=== PATIENT | female | born 1940 | race Caucasian/White ===

== ENCOUNTER 2019-02-09 07:05 | Inpatient (IN) | payer MEDICARE, OTHER ==
[~2019-02-09] VITALS: Ht 157.5 cm; Wt 57.3 kg
[2019-02-09] VITALS (18 sets, daily range): BP systolic 99–153; BP diastolic 51–96
[~2019-02-09 07:05] MED LIST: FURO-150 PO; HYDR-3972 PO; POTA10TA19 PO
[2019-02-09] MEDS ORDERED: normal saline 1000ML IV soln IVB ONE (07:10)
[2019-02-09] MEDS ORDERED: morphine 4 MG/ML inj SYRINge IV PRN (07:10)
[2019-02-09] MEDS ORDERED: ondansetron/PF 4mg/2ml inj IV ONE (07:10)
--- NOTE | 2019-02-09 07:33 | NUR ---
PT MEDICATED FOR PAIN AND NAUSEA PER ORDERS, PT TO CT VIA GURNEY WITH HEALTH SERVICE WORKER NOW PER ORDERS,.
[2019-02-09 07:41] LABS: BASOPHILS % (AUTO) 0.3 % (0-1); EOSINOPHILS % (AUTO) 0.2 % (0-6); HEMATOCRIT 35.7 % (35.0-45.0); HEMOGLOBIN 11.8 g/dl (12.0-16.0); LYMPHOCYTES # (AUTO) 0.2 X10'3 (1.1-4.8); LYMPHOCYTES % (AUTO) 3.9 % (21-51); MEAN CORPUSCULAR HEMOGLOBIN 32.3 PG (27.0-31.0); MEAN CORPUSCULAR HGB CONC 33.2 g/dL (33.0-36.5); MEAN CORPUSCULAR VOLUME 97.4 FL (78-98); MEAN PLATELET VOLUME 6.8 FL (7.4-10.4); MONOCYTES # (AUTO) 0.3 X10'3 (0-0.9); NEUTROPHILS # (AUTO) 5.3 X10'3 (1.8-7.7); NEUTROPHILS % (AUTO) 90.6 % (42-75); PLATELET COUNT 170 X10'3 (140-440); RED BLOOD COUNT 3.66 X10'6 (4.20-5.60); WHITE BLOOD COUNT 5.9 X10'3 (4.5-11.0)
[2019-02-09 09:01] LABS: ALANINE AMINOTRANSFERASE 572 U/L (12-78); ALBUMIN 3.8 G/DL (3.4-5.0); ALBUMIN/GLOBULIN RATIO 1.3 (1.1-1.5); ALKALINE PHOSPHATASE 129 IU/L (46-116); ANION GAP 13 (8-16); ASPARTATE AMINO TRANSFERASE 995 U/L (10-37); BILIRUBIN,TOTAL 2.7 MG/DL (0.1-1.0); BLOOD UREA NITROGEN 22 MG/DL (7-18); BUN/CREATININE RATIO 20.4 (6.6-38.0); CHLORIDE 108 MMOL/L (99-107); CREATININE 1.08 MG/DL (0.40-0.90); GLUCOSE 147 MG/DL (70-104); LIPASE 1355 U/L (73-393); SODIUM 143 MMOL/L (135-145); TOTAL CARBON DIOXIDE 21.6 MMOL/L (24-32); TOTAL PROTEIN 6.8 G/DL (6.4-8.2); eGFR 49 ML/MIN
[2019-02-09] MEDS ORDERED: acetaminophen 325mg tablet PO PRN ×2 (09:50)
[2019-02-09] MEDS ORDERED: ondansetron/PF 4mg/2ml inj IV PRN (09:50)
[2019-02-09] MEDS ORDERED: docusate sod 100mg capsule PO PRN (09:50)
[2019-02-09] MEDS ORDERED: potassium Cl 20 mEq SR tablet PO PRN ×2 (09:50)
[2019-02-09] MEDS ORDERED: magnesium Cl slow-release 64mg tablet PO PRN (09:50)
[2019-02-09] MEDS: normal saline 1000ml 1,000 ML IV SCH ×2 (09:50→21:45)
[2019-02-09] MEDS ORDERED: magnesium 4gm in 100ml NS 100 ML IV PRN (09:50)
[2019-02-09] MEDS ORDERED: morphine 2 MG/ML inj. syringe IV PRN ×2 (09:50)
[2019-02-09] MEDS ORDERED: potassium CL 10mEq/100ml bag 100 ML IV PRN ×2 (09:50)
[2019-02-09] MEDS ORDERED: magnesium 2GM in 50ml NS 50 ML IV PRN (09:50)
--- NOTE | 2019-02-09 09:52 | NUR ---
US JUST FINISHED AT BEDSIDE PER ORDERS, DR PERDOMO AT BEDSIDE AND PT STATES HAS TO USE BATHROOM, GAVE PT URINE CUP AND WIPES TO PROVIDE SAMPLE, PT AMBULATORY TO BATHROOM WITH ASSISTANCE PT WALKS WITH CAME, PT GIVEN WALKER TO RETURN TO BED 09
--- NOTE | 2019-02-09 09:53 | NUR ---
DR PERDOMO AWARE PT FAMILY HAS LEFT BEDSIDE AND HAS PT MEDICATION LIST, WILL UPDATED MED REC WHEN FAMILY RETURNS WITH LIST.
--- NOTE | 2019-02-09 10:21 | NUR ---
DR PERDOMO BACK AT BEDSIDE FOR EVALUATION, PT NPO NOW FOR ERCP AND WILL MOST LIKELY HAVE GALL BLADDER RESECTION TOMORROW, PLACED NPO SIGN.
[2019-02-09 10:24] LABS: CLARITY,URINE CLEAR (Clear); COLOR,URINE YELLOW (Yellow); GLUCOSE, URINE 100 mg/dl (Neg); KETONES,URINE TRACE mg/dl (Neg); LEUKOCYTE ESTERASE ,URINE NEGATIVE (Neg); NITRITES, URINE NEGATIVE (Neg); OCCULT BLOOD,URINE NEGATIVE (Neg); PROTEIN,URINE NEGATIVE (Neg)
[2019-02-09 10:37] LABS: UA COLLECTION TYPE CLN CATCH MIDSTREAM
--- NOTE | 2019-02-09 10:40 | NUR ---
GAVE REPORT TO IRINEO IN GI LAB WHO WILL COME GET PT APPROX [phone]. NON ADMIN HEPARIN PER IRINEO REQUEST DUE TO PROCEDURE
[2019-02-09] MEDS ORDERED: DULO-31 PO (11:17)
[2019-02-09] MEDS ORDERED: ASPI-611 PO (11:17)
[2019-02-09] MEDS ORDERED: SULF1TAB48 PO (11:17)
[2019-02-09] MEDS ORDERED: OMEP40CA13 PO (11:17)
[2019-02-09] MEDS ORDERED: TRAM50TA2 PO (11:17)
--- NOTE | 2019-02-09 11:50 | NUR ---
Patient in room [facility]. I have received report from CORTEZ ALCANTARA and had the opportunity to ask questions and assume patient care.
[2019-02-09] MEDS ORDERED: diphenhydrAMINE 50 mg/ml inj ONE (12:52)
[2019-02-09] MEDS ORDERED: LIDOcaine Viscous 15ml cup ONE (12:52)
[2019-02-09] MEDS ORDERED: fentaNYL/PF 50MCG/1 ML 2ML syringe ONE (12:52)
[2019-02-09] MEDS ORDERED: MIDAZolam 5mg/5ml vial ONE (12:52)
[2019-02-09] MEDS ORDERED: glucagon, human recombinant 1mg kit ONE (12:53)
[2019-02-09] MEDS ORDERED: iohexol 300 MG/1 ML 50ml polymer ONE (12:53)
--- NOTE | 2019-02-09 17:40 | NUR ---
PT RETURNED FROM GI LAB. VSS.
[2019-02-09] MEDS: piperacillin/tazo 3.375gm/50ml 50 ML IV SCH (17:50)
[2019-02-09] MEDS ORDERED: heparin, porcine 5000 units/ml vial SQ SCH (20:00)
[2019-02-09] MEDS ORDERED: temazepam 15mg capsule PO PRN (21:00)
[2019-02-10] VITALS (14 sets, daily range): BP systolic 114–171; BP diastolic 47–84
[2019-02-10] MEDS: piperacillin/tazo 3.375gm/50ml 50 ML IV SCH ×3 (00:23→15:03)
[2019-02-10 06:07] LABS: BASOPHILS % (AUTO) 0.2 % (0-1); EOSINOPHILS # (AUTO) 0.1 X10'3 (0-0.9); EOSINOPHILS % (AUTO) 1.1 % (0-6); HEMATOCRIT 31.5 % (35.0-45.0); HEMOGLOBIN 10.6 g/dl (12.0-16.0); LYMPHOCYTES # (AUTO) 0.4 X10'3 (1.1-4.8); LYMPHOCYTES % (AUTO) 7.6 % (21-51); MEAN CORPUSCULAR HGB CONC 33.6 g/dL (33.0-36.5); MEAN CORPUSCULAR VOLUME 98.1 FL (78-98); MEAN PLATELET VOLUME 7.2 FL (7.4-10.4); MONOCYTES # (AUTO) 0.3 X10'3 (0-0.9); MONOCYTES % (AUTO) 6.5 % (2-12); NEUTROPHILS % (AUTO) 84.6 % (42-75); PLATELET COUNT 145 X10'3 (140-440); RED BLOOD COUNT 3.21 X10'6 (4.20-5.60); RED CELL DISTRIBUTION WIDTH 14.3 % (11.5-14.5); WHITE BLOOD COUNT 4.8 X10'3 (4.5-11.0)
[2019-02-10 06:32] LABS: ALANINE AMINOTRANSFERASE 479 U/L (12-78); ALBUMIN 2.7 G/DL (3.4-5.0); ALKALINE PHOSPHATASE 105 IU/L (46-116); ANION GAP 10 (8-16); ASPARTATE AMINO TRANSFERASE 422 U/L (10-37); BILIRUBIN,TOTAL 6.3 MG/DL (0.1-1.0); BLOOD UREA NITROGEN 14 MG/DL (7-18); BUN/CREATININE RATIO 14.9 (6.6-38.0); CALCIUM 7.9 MG/DL (8.5-10.1); CHLORIDE 111 MMOL/L (99-107); CREATININE 0.94 MG/DL (0.40-0.90); GLUCOSE 76 MG/DL (70-104); MAGNESIUM 1.7 MG/DL (1.5-2.4); POTASSIUM 3.9 MMOL/L (3.5-5.1); SODIUM 144 MMOL/L (135-145); eGFR 57 ML/MIN
[2019-02-10] MEDS: K and/or MAG REPLACEMENT MC SCH (06:37)
[2019-02-10 06:39] LABS: TOTAL PROTEIN 5.4 G/DL (6.4-8.2)
--- NOTE | 2019-02-10 06:55 | NUR ---
Problems reprioritized. Patient report given, questions answered & plan of care reviewed with DOUG. Addendum: 02/10/19 at 0655 by Salvador Galvin RN Amended: Links added.
[2019-02-10] MEDS: pantoprazole 40 MG vial IV SCH (07:13)
[2019-02-10 10:22] LABS: PRE OP PARTIAL THROMB. TIME 32 SECONDS (22-32)
[2019-02-10] MEDS: normal saline 1000ml 1,000 ML IV SCH (13:05)
[2019-02-10] MEDS ORDERED: ringers solution, lacted 1,000 ML IV SCH (14:58)
[2019-02-10] MEDS ORDERED: INDOCYANINE GREEN 25 MG VIAL IV ONE (15:00)
[2019-02-10] MEDS ORDERED: proCHLORperazine 10 MG/2 ml inj IV PRN (15:00)
[2019-02-10] MEDS ORDERED: morphine 4 MG/ML inj SYRINge IV PRN ×2 (15:00)
[2019-02-10] MEDS ORDERED: ondansetron/PF 4mg/2ml inj IV PRN (15:00)
[2019-02-10] MEDS ORDERED: meperidine/PF 25mg/ml syringe IV PRN (15:00)
--- NOTE | 2019-02-10 18:26 | NUR ---
Problems reprioritized. Patient report given, questions answered & plan of care reviewed with ISMAEL ALCANTARA.
[2019-02-10] MEDS ORDERED: LIDOcaine 1% 30ml preserv. free vial ONE (18:51)
[2019-02-10] MEDS ORDERED: BUPIVAcaine/PF 2.5 mg/ml (0.25%) 30ml vial ONE (18:51)
[2019-02-10] MEDS ORDERED: fentaNYL/PF 50MCG/1 ML 2ML syringe ONE (19:02)
[2019-02-10] MEDS ORDERED: rocuronium 10mg/ml inj IV ONE (19:03)
[2019-02-10] MEDS ORDERED: propofol inj 20 ML IV ONE (19:03)
[2019-02-10] MEDS ORDERED: ceFOXitin 2 GM ADDVANTGE BAG 50 ML IV ONE (19:07)
[2019-02-10] MEDS: lactobacillus rhamnosus 10,000 MMU CELLS/CAPSULE PO SCH (20:00)
[2019-02-10] MEDS ORDERED: glycopyrrolate 0.2mg/ml inj ONE (20:14)
[2019-02-10] MEDS ORDERED: neostigmine methylsulfate 1 MG/ML 10ml vial ONE (20:14)
--- NOTE | 2019-02-10 20:15 | NUR ---
RECEIVED REPORT FROM [facility] ON [facility] . PT BACK TO ROOM BUT PAINFUL. GAVE MS 1MG= NO HELP, GAVE 0.5MG OF DILAUDID = NO HELP. CALLED DR. STOKES AND GOT AN ORDER FOR DILAUDID YONI.
[2019-02-10] MEDS ORDERED: HYDROmorphone inj. 0.5 MG/0.5 ML DISP.SYRIN IV PRN (20:20)
--- NOTE | 2019-02-10 20:35 | NUR ---
Received from OR via BED , accompanied by Anesthesiologist DR MILLER and report given by Anesthesiolgist. PATIENT WAKING UP, C/O PAIN SEE EMAR, V/S WNL, NEUROVASCULAR CHECKS INTACT, 20G PIV RUE, SCD ON, 4 BANDAIDS TO LAP SIGHTS OF ABDOMEN CDI,
--- NOTE | 2019-02-10 21:15 | NUR ---
PATIENT SLEEPY, C/O PAIN AT TIMES SEE EMAR, V/S WNL, NEUROVASCULAR CHECKS INTACT, 20G PIV RUE, SCD ON, 4 BANDAIDS TO LAP SIGHTS OF ABDOMEN CDI, PATIENT TAKEN TO [facility] 355A WITH ALL BELONGINGS AND HOOKED UP TO MONITORS IN ROOM AND REPORT GIVEN TO RN WHO HAS TAKEN OVER PATIENT CARE
[2019-02-10] MEDS: meperidine/PF 25mg/ml syringe IV PRN ×4 (22:04→22:09)
[2019-02-10] MEDS: HYDROmorphone/NS 1 mg/ml CADD 50 ML IV SCH (23:40)
[2019-02-11] VITALS: BP_SYST 114; BP_SYST 116; BP_DIAS 68; BP_DIAS 72
[2019-02-11] MEDS: piperacillin/tazo 3.375gm/50ml 50 ML IV SCH ×3 (00:04→15:33)
[2019-02-11 01:00] VITALS: BP 118/70
[2019-02-11] MEDS: HYDROmorphone/NS 1 mg/ml CADD 50 ML IV SCH ×7 (01:00→13:00)
[2019-02-11] MEDS: normal saline 1000ml 1,000 ML IV SCH ×2 (05:00→15:33)
--- NOTE | 2019-02-11 05:00 | NUR ---
PT AMBULATED 60FT WITH IV POLE AND 2 LPM O2. PT TOLERATED IT WELL
[2019-02-11 05:56] LABS: BASOPHILS % (AUTO) 0.1 % (0-1); EOSINOPHILS % (AUTO) 0.1 % (0-6); HEMATOCRIT 34.4 % (35.0-45.0); HEMOGLOBIN 11.4 g/dl (12.0-16.0); LYMPHOCYTES # (AUTO) 0.4 X10'3 (1.1-4.8); LYMPHOCYTES % (AUTO) 4.6 % (21-51); MEAN CORPUSCULAR HEMOGLOBIN 32.4 PG (27.0-31.0); MEAN CORPUSCULAR VOLUME 98.2 FL (78-98); MEAN PLATELET VOLUME 7.1 FL (7.4-10.4); MONOCYTES # (AUTO) 0.5 X10'3 (0-0.9); MONOCYTES % (AUTO) 5.9 % (2-12); NEUTROPHILS # (AUTO) 7.2 X10'3 (1.8-7.7); NEUTROPHILS % (AUTO) 89.3 % (42-75); PLATELET COUNT 161 X10'3 (140-440); RED BLOOD COUNT 3.51 X10'6 (4.20-5.60); RED CELL DISTRIBUTION WIDTH 14.4 % (11.5-14.5)
[2019-02-11 06:13] LABS: ALANINE AMINOTRANSFERASE 340 U/L (12-78); ALBUMIN 2.8 G/DL (3.4-5.0); ALBUMIN/GLOBULIN RATIO 0.9 (1.1-1.5); ALKALINE PHOSPHATASE 118 IU/L (46-116); ANION GAP 15 (8-16); ASPARTATE AMINO TRANSFERASE 205 U/L (10-37); BILIRUBIN,TOTAL 3.7 MG/DL (0.1-1.0); BLOOD UREA NITROGEN 13 MG/DL (7-18); BUN/CREATININE RATIO 11.2 (6.6-38.0); CALCIUM 7.9 MG/DL (8.5-10.1); CHLORIDE 107 MMOL/L (99-107); CREATININE 1.16 MG/DL (0.40-0.90); GLUCOSE 77 MG/DL (70-104); MAGNESIUM 1.5 MG/DL (1.5-2.4); POTASSIUM 4.1 MMOL/L (3.5-5.1); SODIUM 142 MMOL/L (135-145); TOTAL CARBON DIOXIDE 20.1 MMOL/L (24-32); TOTAL PROTEIN 5.8 G/DL (6.4-8.2); eGFR 45 ML/MIN
--- NOTE | 2019-02-11 06:51 | NUR ---
Problems reprioritized. Patient report given, questions answered & plan of care reviewed with FRANDY. Addendum: 02/11/19 at 0651 by Salvador Galvin RN Amended: Links added.
[2019-02-11 07:00] VITALS: BP 145/71
[2019-02-11] MEDS: K and/or MAG REPLACEMENT MC SCH (08:00)
[2019-02-11] MEDS: lactobacillus rhamnosus 10,000 MMU CELLS/CAPSULE PO SCH ×2 (09:46→20:20)
[2019-02-11] MEDS: pantoprazole 40 MG vial IV SCH (09:49)
[2019-02-11] MEDS ORDERED: LACT1CAP26 PO (13:12)
[2019-02-11] MEDS ORDERED: AMOX-419 PO (13:12)
[2019-02-11] MEDS ORDERED: CADD PCA waste documentation MC SCH (14:05)
[2019-02-11] MEDS: HYDROcodone/acetaminophen 10/325mg tab PO PRN ×2 (15:34→22:57)
--- NOTE | 2019-02-11 15:45 | NUR ---
PAGER ID: [phone] MESSAGE: COREY QUIJANO 357 ARMS AND LEGS EDEMATOUS NONPITTING- MORE PUFFY THAN THIS AM. KIDNEY FX DECREASE. LUNGS OK. NS @70. CONT. FLUIDS OR DC? ALSO MAY WE HAVE PT EVAL FOR DC FX. CALL SURGICAL. THANK YOU.
--- NOTE | 2019-02-11 18:24 | NUR ---
Patient in room [facility]. I have received report from QUINTON WISE and had the opportunity to ask questions and assume patient care.
--- NOTE | 2019-02-11 18:52 | NUR ---
Problems reprioritized. Patient report given, questions answered & plan of care reviewed with SONA ALCANTARA.
[2019-02-11 20:00] VITALS: BP 152/51
[2019-02-11] MEDS: HYDROcodone/acetaminophen 5mg/325mg tablet PO PRN (20:24)
[2019-02-12] VITALS: BP 160/61
[2019-02-12] MEDS: piperacillin/tazo 3.375gm/50ml 50 ML IV SCH ×2 (00:48→07:40)
[2019-02-12 06:18] LABS: BASOPHILS % (AUTO) 0.3 % (0-1); EOSINOPHILS # (AUTO) 0.1 X10'3 (0-0.9); EOSINOPHILS % (AUTO) 2.3 % (0-6); HEMATOCRIT 30.8 % (35.0-45.0); HEMOGLOBIN 10.4 g/dl (12.0-16.0); LYMPHOCYTES # (AUTO) 0.5 X10'3 (1.1-4.8); LYMPHOCYTES % (AUTO) 9.4 % (21-51); MEAN CORPUSCULAR HGB CONC 33.9 g/dL (33.0-36.5); MEAN CORPUSCULAR VOLUME 97.3 FL (78-98); MEAN PLATELET VOLUME 7.3 FL (7.4-10.4); MONOCYTES # (AUTO) 0.4 X10'3 (0-0.9); MONOCYTES % (AUTO) 8.9 % (2-12); NEUTROPHILS # (AUTO) 3.9 X10'3 (1.8-7.7); NEUTROPHILS % (AUTO) 79.1 % (42-75); PLATELET COUNT 173 X10'3 (140-440); RED BLOOD COUNT 3.17 X10'6 (4.20-5.60); RED CELL DISTRIBUTION WIDTH 14.1 % (11.5-14.5); WHITE BLOOD COUNT 4.9 X10'3 (4.5-11.0)
--- NOTE | 2019-02-12 06:32 | NUR ---
Problems reprioritized. Patient report given, questions answered & plan of care reviewed with QUINTON Sheikh.
[2019-02-12 06:41] LABS: ALANINE AMINOTRANSFERASE 231 U/L (12-78); ALBUMIN 2.5 G/DL (3.4-5.0); ALBUMIN/GLOBULIN RATIO 0.8 (1.1-1.5); ALKALINE PHOSPHATASE 97 IU/L (46-116); ANION GAP 10 (8-16); ASPARTATE AMINO TRANSFERASE 83 U/L (10-37); BILIRUBIN,TOTAL 1.9 MG/DL (0.1-1.0); BLOOD UREA NITROGEN 9 MG/DL (7-18); BUN/CREATININE RATIO 9.3 (6.6-38.0); CALCIUM 8.1 MG/DL (8.5-10.1); CHLORIDE 109 MMOL/L (99-107); CREATININE 0.97 MG/DL (0.40-0.90); GLUCOSE 83 MG/DL (70-104); MAGNESIUM 1.7 MG/DL (1.5-2.4); POTASSIUM 3.7 MMOL/L (3.5-5.1); SODIUM 144 MMOL/L (135-145); TOTAL CARBON DIOXIDE 24.6 MMOL/L (24-32); TOTAL PROTEIN 5.6 G/DL (6.4-8.2); eGFR 55 ML/MIN
--- NOTE | 2019-02-12 06:47 | NUR ---
Patient in room [facility]. I have received report from QUINTON Valverde and had the opportunity to ask questions and assume patient care.
[2019-02-12 07:35] VITALS: BP 154/82
[2019-02-12] MEDS: lactobacillus rhamnosus 10,000 MMU CELLS/CAPSULE PO SCH (07:40)
[2019-02-12] MEDS: pantoprazole 40 MG vial IV SCH (07:40)
[2019-02-12] MEDS: K and/or MAG REPLACEMENT MC SCH (07:57)
[2019-02-12 11:00] VITALS: BP 145/70
[2019-02-12] MEDS: HYDROcodone/acetaminophen 5mg/325mg tablet PO PRN (11:34)
--- NOTE | 2019-02-12 15:00 | NUR ---
PATIENT DC'D HOME WITH DAUGHTER, MEDS DELIVERED BY [facility] BEDSIDE, EDUCATION GIVEN FOR AFTER CARE, MEDS AND SIGNS AND SYMPTOMS TO WATCH FOR, TAKEN TO CAR BY WHEEL CHAIR, IV TAKEN OUT, TELE TAKEN OFF, ALL BELONGINGS TAKEN FROM ROOM, PATIENT APPROPRIATE FOR DISCHARGE
== END 2019-02-12 15:01 | disposition home or self-care (01) | DRG 417 ==
LOC: ER 07:06 → SUR 3N 11:48 → CMPBEDREQ 19:57 → SUR 3N 02-11 04:52
PROVIDERS: ADMIT Internal Medicine; ATTEND Family Medicine
PROC: 0FC98ZZ Extirpation of Matter from Common Bile Duct, Via Natural or Artificial Opening Endoscopic (ICD-10-PCS; 2019-02-09)
PROC: BF101ZZ Fluoroscopy of Bile Ducts using Low Osmolar Contrast (ICD-10-PCS; 2019-02-09)
PROC: 0DNU4ZZ Release Omentum, Percutaneous Endoscopic Approach (ICD-10-PCS; 2019-02-10)
PROC: 8E0W4CZ Robotic Assisted Procedure of Trunk Region, Percutaneous Endoscopic Approach (ICD-10-PCS; 2019-02-10)
PROC: 0FT44ZZ Resection of Gallbladder, Percutaneous Endoscopic Approach (ICD-10-PCS; principal; 2019-02-10 19:01)
DX: K80.63 Calculus of gallbladder and bile duct with acute cholecystitis with obstruction (principal); K85.10 Biliary acute pancreatitis without necrosis or infection; R71.0 Precipitous drop in hematocrit; G62.9 Polyneuropathy, unspecified; K59.00 Constipation, unspecified; I25.10 Atherosclerotic heart disease of native coronary artery without angina pectoris; B95.2 Enterococcus as the cause of diseases classified elsewhere; N18.3 Chronic kidney disease, stage 3 (moderate); K82.8 Other specified diseases of gallbladder; G89.29 Other chronic pain; R74.0 Nonspecific elevation of levels of transaminase and lactic acid dehydrogenase [LDH]; K21.9 Gastro-esophageal reflux disease without esophagitis; F32.9 Major depressive disorder, single episode, unspecified; R74.8 Abnormal levels of other serum enzymes; F41.9 Anxiety disorder, unspecified; K82.A1 Gangrene of gallbladder in cholecystitis; Z90.710 Acquired absence of both cervix and uterus; Z90.49 Acquired absence of other specified parts of digestive tract; Z79.899 Other long term (current) drug therapy; Z79.82 Long term (current) use of aspirin
CPT/HCPCS: 36415; 43262; 43264; 71045; 74176; 76700; 80053; 81003; 83690; 83735; 85025; 85610; 85730; 87081; 88304; 93005; 93308; 96361; 96374; 96375; 97110; 97116; 97162; 99152; 99153; 99285; A4215; A4618; A4620; A7000; C1769; C9113; G0378; J0694; J0780; J1170; J1200; J1610; J2001; J2175; J2250; J2270; J2405; J2543; J2704; J2710; J3010; J3490; J7030; J7040; J7120; Q9967

== ENCOUNTER 2020-09-07 15:29 | Emergency (ER) | payer BC, MEDICARE, OTHER ==
[~2020-09-07] VITALS: Ht 157.5 cm; Wt 56.4 kg
[~2020-09-07 15:29] MED LIST changes: +ASPI-611 PO; +DULO-31 PO; -FURO-150 PO; -HYDR-3972 PO; +LACT1CAP26 PO; +OMEP40CA13 PO; -POTA10TA19 PO; +TRAM50TA2 PO
[2020-09-07 16:31] LABS: BASOPHILS % (AUTO) 0.4 % (0-1); EOSINOPHILS # (AUTO) 0.1 X10'3 (0-0.9); EOSINOPHILS % (AUTO) 1.1 % (0-6); HEMATOCRIT 40.5 % (35.0-45.0); HEMOGLOBIN 13.1 g/dl (12.0-16.0); LYMPHOCYTES # (AUTO) 1.1 X10'3 (1.1-4.8); LYMPHOCYTES % (AUTO) 21.4 % (21-51); MEAN CORPUSCULAR HEMOGLOBIN 30.5 PG (27.0-31.0); MEAN CORPUSCULAR HGB CONC 32.4 g/dL (33.0-36.5); MEAN CORPUSCULAR VOLUME 94.2 FL (78-98); MEAN PLATELET VOLUME 7.8 FL (7.4-10.4); MONOCYTES # (AUTO) 0.4 X10'3 (0-0.9); NEUTROPHILS # (AUTO) 3.4 X10'3 (1.8-7.7); NEUTROPHILS % (AUTO) 69.1 % (42-75); PLATELET COUNT 203 X10'3 (140-440); RED CELL DISTRIBUTION WIDTH 14.9 % (11.5-14.5)
[2020-09-07] MEDS ORDERED: ondansetron/PF 4mg/2ml inj IV ONE (16:40)
[2020-09-07] MEDS ORDERED: HYDROmorphone 1 mg/ml syringe IV ONE ×3 (16:40→18:05)
[2020-09-07 16:51] LABS: CLARITY,URINE SLIGHTLY CLOUDY (Clear); COLOR,URINE YELLOW (Yellow); GLUCOSE, URINE NEGATIVE (Neg); KETONES,URINE NEGATIVE (Neg); LEUKOCYTE ESTERASE ,URINE NEGATIVE (Neg); NITRITES, URINE NEGATIVE (Neg); OCCULT BLOOD,URINE TRACE-INTACT (Neg); PH,URINE 5.5 (4.8-8.0); PROTEIN,URINE NEGATIVE (Neg); UROBILINOGEN,URINE 0.2 E.U/dL (0.2-1.0)
[2020-09-07 16:55] LABS: UA COLLECTION TYPE CLN CATCH MIDSTREAM
[2020-09-07 17:02] LABS: MUCUS STRANDS FEW /LPF (Neg); SQUAMOUS EPITHELIAL CELL,UR FEW /LPF (FEW)
[2020-09-07 17:09] LABS: ALANINE AMINOTRANSFERASE 27 U/L (12-78); ALBUMIN 3.9 G/DL (3.4-5.0); ALBUMIN/GLOBULIN RATIO 1.2 (1.1-1.5); ALKALINE PHOSPHATASE 103 IU/L (46-116); ANION GAP 14 (8-16); ASPARTATE AMINO TRANSFERASE 31 U/L (10-37); BILIRUBIN,TOTAL 0.6 MG/DL (0.1-1.0); BLOOD UREA NITROGEN 21 MG/DL (7-18); BUN/CREATININE RATIO 18.9 (6.6-38.0); CALCIUM 9.1 MG/DL (8.5-10.1); CHLORIDE 104 MMOL/L (99-107); CREATININE 1.11 MG/DL (0.40-0.90); GLUCOSE 102 MG/DL (70-104); LIPASE 121 U/L (73-393); POTASSIUM 4.1 MMOL/L (3.5-5.1); SODIUM 141 MMOL/L (135-145); TOTAL CARBON DIOXIDE 23.4 MMOL/L (24-32); TOTAL PROTEIN 7.2 G/DL (6.4-8.2); eGFR 47 ML/MIN
[2020-09-07] MEDS ORDERED: morphine 4 MG/ML inj SYRINge IV ONE (17:20)
[2020-09-07 17:22] LABS: YEAST MODERATE /HPF (NEGATIVE)
[2020-09-07 17:23] LABS: BACTERIA,URINE FEW /HPF (Neg); RBC,URINE 0-2 /HPF (0-2)
--- NOTE | 2020-09-07 18:38 | NUR ---
spoke to dr carvalho regarding iv fluid. patient reports poor po intake in the last few days. mouth is very dry
[2020-09-07] MEDS ORDERED: HYDR-3964 PO (18:54)
[2020-09-07] MEDS ORDERED: ONDA4TAB6 PO (18:54)
[2020-09-07 19:06] VITALS: BP 159/101
== END 2020-09-07 19:20 | disposition home or self-care (01) ==
LOC: ER 15:30
DX: R10.30 Lower abdominal pain, unspecified (principal); N18.9 Chronic kidney disease, unspecified; G89.29 Other chronic pain; Z90.89 Acquired absence of other organs; Z90.710 Acquired absence of both cervix and uterus; Z98.890 Other specified postprocedural states; Z85.9 Personal history of malignant neoplasm, unspecified; Z79.82 Long term (current) use of aspirin; Z79.899 Other long term (current) drug therapy
CPT/HCPCS: 36415; 71045; 74176; 80053; 81001; 83605; 83690; 84484; 85025; 87077; 87088; 93005; 96374; 96375; 99285; J1170; J2270; J2405

== ENCOUNTER 2021-07-24 15:05 | Emergency (ER) | payer OTHER ==
[~2021-07-24] VITALS: Ht 157.5 cm; Wt 56.4 kg
[~2021-07-24 15:05] MED LIST changes: -OMEP40CA13 PO; +OMEP40CA21 PO; +ONDA4TAB6 PO
[2021-07-24] MEDS ORDERED: HYDROcodone/acetaminophen 5mg/325mg tablet PO ONE (15:40)
[2021-07-24] MEDS ORDERED: acetaminophen 325mg tablet PO ONE (17:25)
[2021-07-24 17:38] VITALS: BP 152/89
--- NOTE | 2021-07-24 18:11 | NUR ---
STONE HAND AT BEDSIDE TO PLACE SPLINT.
== END 2021-07-24 18:30 | disposition home or self-care (01) ==
LOC: ER 15:06
DX: S52.501A Unspecified fracture of the lower end of right radius, initial encounter for closed fracture (principal); S52.611A Displaced fracture of right ulna styloid process, initial encounter for closed fracture; G62.9 Polyneuropathy, unspecified; G89.29 Other chronic pain; Z85.9 Personal history of malignant neoplasm, unspecified; Z90.49 Acquired absence of other specified parts of digestive tract; Z90.710 Acquired absence of both cervix and uterus; Z79.899 Other long term (current) drug therapy; Z79.82 Long term (current) use of aspirin; W18.00XA Striking against unspecified object with subsequent fall, initial encounter; Z91.81 History of falling; Y93.89 Activity, other specified; Y92.89 Other specified places as the place of occurrence of the external cause; Y99.8 Other external cause status
CPT/HCPCS: 73110; 99284

== ENCOUNTER 2022-03-02 14:33 | Emergency (ER) | payer MEDICARE, OTHER ==
[~2022-03-02] VITALS: Ht 160 cm; Wt 56.8 kg
[2022-03-02 17:35] LABS: BASOPHILS % (AUTO) 0.7 % (0-1); EOSINOPHILS # (AUTO) 0.1 X10'3 (0-0.9); EOSINOPHILS % (AUTO) 2.1 % (0-6); HEMOGLOBIN 12.3 g/dl (12.0-16.0); LYMPHOCYTES # (AUTO) 1.5 X10'3 (1.1-4.8); LYMPHOCYTES % (AUTO) 29.5 % (21-51); MEAN CORPUSCULAR HEMOGLOBIN 32.4 PG (27.0-31.0); MEAN CORPUSCULAR HGB CONC 33.2 g/dL (33.0-36.5); MEAN CORPUSCULAR VOLUME 97.5 FL (78-98); MEAN PLATELET VOLUME 7.6 FL (7.4-10.4); MONOCYTES # (AUTO) 0.4 X10'3 (0-0.9); NEUTROPHILS # (AUTO) 2.9 X10'3 (1.8-7.7); NEUTROPHILS % (AUTO) 58.7 % (42-75); PLATELET COUNT 191 X10'3 (140-440); RED BLOOD COUNT 3.79 X10'6 (4.20-5.60); RED CELL DISTRIBUTION WIDTH 13.9 % (11.5-14.5)
[2022-03-02 17:50] LABS: ALANINE AMINOTRANSFERASE 34 U/L (12-78); ALBUMIN 3.9 G/DL (3.4-5.0); ALBUMIN/GLOBULIN RATIO 1.3 (1.1-1.5); ALKALINE PHOSPHATASE 65 IU/L (46-116); ANION GAP 7 (8-16); ASPARTATE AMINO TRANSFERASE 31 U/L (10-37); BILIRUBIN,TOTAL 0.7 MG/DL (0.1-1.0); BLOOD UREA NITROGEN 19 MG/DL (7-18); BUN/CREATININE RATIO 18.8 (6.6-38.0); CHLORIDE 108 MMOL/L (99-107); CREATININE 1.01 MG/DL (0.40-0.90); GLUCOSE 93 MG/DL (70-104); SODIUM 144 MMOL/L (135-145); TOTAL CARBON DIOXIDE 28.6 MMOL/L (24-32); eGFR 52 ML/MIN
[2022-03-02 19:37] VITALS: BP 153/87
== END 2022-03-02 19:48 | disposition home or self-care (01) ==
LOC: ER 14:34
DX: G89.29 Other chronic pain (principal); Z90.710 Acquired absence of both cervix and uterus; Z98.890 Other specified postprocedural states
CPT/HCPCS: 36415; 71045; 80053; 83880; 84484; 85025; 93005; 99285